=== PATIENT | male | born 1980 | race Caucasian/White ===

== ENCOUNTER 2021-08-09 15:05 | Emergency (ER) | payer MEDICARE, MEDICAID ==
[~2021-08-09] VITALS: Ht 175.3 cm; Wt 118.2 kg
[~2021-08-09 15:05] MED LIST: ACET-3068 PO; BAC10T PO; DEXM20CP PO; QUET25TA PO; ZOLP5TAB8 PO
[2021-08-09 15:23] VITALS: BP 140/116
== END 2021-08-09 18:02 | disposition home or self-care (01) ==
LOC: ER 15:05
DX: S20.211A Contusion of right front wall of thorax, initial encounter (principal); R07.81 Pleurodynia; G89.29 Other chronic pain; F17.210 Nicotine dependence, cigarettes, uncomplicated; Z79.899 Other long term (current) drug therapy; X58.XXXA Exposure to other specified factors, initial encounter; Y93.89 Activity, other specified; Y92.89 Other specified places as the place of occurrence of the external cause; Y99.8 Other external cause status
CPT/HCPCS: 71101; 99283